=== PATIENT | female | born 1975 | race Caucasian/White ===

== ENCOUNTER 2019-02-26 13:42 | Emergency (ER) ==
[2019-02-26 13:46] VITALS: TEMP 98.5; BMI 38.1
[2019-02-26] MEDS ORDERED: TYLENOL PO STA (14:16)
[2019-02-26] MEDS ORDERED: DECADRON 4 MG/ML SDV IM STA (14:16)
[2019-02-26] MEDS ORDERED: BENADRYL PO STA (14:17)
--- NOTE | 2019-02-26 14:20 | ED.PDOC ---
General Chief Complaint: Eye Problem Stated Complaint: left upper eye lid edema Time Seen by Physician: 14:00 (seen with wolfe at all times ) Mode of Arrival: Walk-In Information Source: Patient Exam Limitations: No limitations Primary Care Provider: KD MIRANDA Nursing and Triage Documentation Reviewed and Agree: Yes Does patient meet sepsis criteria?: No If yes, has appropriate treatment been initiated?: No System Inflammatory Response Syndrome: Not Applicable Sepsis Protocol: For patient's 13 years and over: Temp is 96.8 and below OR 101 and greater Pulse >90 BPM Resp >20/minute Acutely Altered Mental Status Are patient's symptoms suggestive of a new infection, such as: -Pneumonia -Skin, Soft Tissue -Endocarditis -UTI -Bone, Joint Infection -Implantable Device -Acute Abdominal Infection -Wound Infection -Meningitis -Blood Stream Catheter Infection -Unknown EENT Complaint Exam - Eye Complaint/Exam Onset/Duration: today Symptoms Are: Still present Timing: Constant Initial Severity: Mild Current Severity: Mild (see photos) Location: Left Character: Reports: Dull Aggravating: Reports: None Alleviating: Reports: None Associated Signs and Symptoms: Denies: Photophobia, Clear drainage, Purulent drainage, Vision impairment, Fever (headache), Swelling Related History: Reports: Similar episode Eye Surgical History: Reports: None Penetrating Injury Risk Factors: None Globe Rupture Risk Factors: None Acute Glaucoma Risk Factors: None Optic Artery Occlusion Risk Factors: None Visual Acuity Right Eye: 20/20 Visual Acuity Left Eye: 20/50 Visual Field: Normal Extraocular Movement: Normal Orbit Findings: Normal Globe Findings: Intact Lid Findings: Normal Corneal Findings: Clear Fundi: Normal Slit Lamp Used: No Differential Diagnoses: Other (allergic reaction, ) Review of Systems - Review Of Systems Constitutional: Reports: No symptoms Eyes: Reports: Other (eye lid edema left) Ears, Nose, Mouth, Throat: Reports: No symptoms Respiratory: Reports: No symptoms Cardiac: Reports: No symptoms GI: Reports: No symptoms : Reports: No symptoms Musculoskeletal: Reports: No symptoms Skin: Reports: No symptoms Neurological: Reports: No symptoms Endocrine: Reports: No symptoms Hematologic/Lymphatic: Reports: No symptoms All Other Systems: Reviewed and Negative Past Medical History - Past Medical History Previously Healthy: Yes Endocrine: Reports: None Cardiovascular: Reports: None Respiratory: Reports: None Hematological: Reports: None Gastrointestinal: Reports: None Genitourinary: Reports: None Neuro/Psych: Reports: None Musculoskeletal: Reports: None Cancer: Reports: None Last Menstrual Period: tubal - Surgical History General Surgical History: Reports: None - Family History Family History: Reports: None - Social History Smoking Status: Current every day smoker Hx Substance Use: No Alcohol Screening: Occasionally - Immunizations Tetanus Shot up to Date: Yes Physical Exam - Physical Exam Appearance: Well-appearing, No pain distress, Well-nourished Eyes: CHEL (left upper lid edema see photos), EOMI, Conjunctiva clear ENT: Ears normal, Nose normal, Oropharynx normal Respiratory: Airway patent, Breath sounds clear, Breath sounds equal, Respirations nonlabored Cardiovascular: RRR, Pulses normal, No rub, No murmur GI/: Soft, Nontender, No masses, Bowel sounds normal, No Organomegaly Musculoskeletal: Normal strength, ROM intact, No edema, No calf tenderness Skin: Warm, Dry, Normal color Neurological: Sensation intact, Motor intact, Reflexes intact, Cranial nerves intact, Alert, Oriented Psychiatric: Affect appropriate, Mood appropriate Critical Care Note - Critical Care Note Total Time (mins): 0 Course - Course Orders, Labs, Meds: Orders Category Date Time Status Acetaminophen [Tylenol] MEDS 02/26/19 14:16 Stat 650 mg PO ONCE STA Dexamethasone 4 mg/ml Inj [Decadron 4 mg/ml Sdv] MEDS 02/26/19 14:16 Stat 8 mg IM ONCE STA Diphenhydramine HCl [Benadryl] MEDS 02/26/19 14:17 Stat 50 mg PO ONCE STA Medications Generic Name Dose Route Start Last Admin Trade Name Freq PRN Reason Stop Dose Admin Diphenhydramine HCl 50 mg 02/26/19 14:17 Benadryl PO 02/26/19 14:18 ONCE STA Discontinued Medications Generic Name Dose Route Start Last Admin Trade Name Freq PRN Reason Stop Dose Admin Acetaminophen 650 mg 02/26/19 14:16 Tylenol PO 02/26/19 14:17 ONCE STA Dexamethasone Sodium Phosphate 8 mg 02/26/19 14:16 Decadron 4 Mg/Ml Sdv IM 02/26/19 14:17 ONCE STA Vital Signs: Temp Pulse Resp BP Pulse Ox 02/26/19 13:42 98.5 F 89 16 145/93 H 98 Departure - Departure Time of Disposition: 14:20 Disposition: HOME SELF-CARE Discharge Problem: Allergic reaction Qualifiers: Encounter type: initial encounter Qualified Code(s): T78.40XA - Allergy, unspecified, initial encounter Hypertension Qualifiers: Hypertension type: unspecified Qualified Code(s): I10 - Essential (primary) hypertension Instructions: Allergies (ED), Hypertension (ED) Condition: Good Pt referred to PMD for follow-up: Yes IPMP verified?: No Additional Instructions: Please call your Family Physician as soon as possible to schedule a follow-up appointment.if the eyelid is not better or worse return in 24 hrs and follow up with the clinic, YOUR BLOOD PRESSURE IS HIGH PLEASE SEE THE CLINIC FOR THIS Prescriptions: Tobramycin [Tobrex] 2 drop OP QID #1 bottle Allergies/Adverse Reactions: Allergies No Known Allergies Allergy (Verified 02/26/19 13:47) Home Medications: Ambulatory Orders Tobramycin [Tobrex] 2 drop OP QID #1 bottle 02/26/19 Disposition Discussed With: Patient
[2019-02-26 14:48] VITALS: BP 124/72
== END 2019-02-26 14:49 | disposition home or self-care (01) ==
LOC: ED 13:42
DX: T78.40XA Allergy, unspecified, initial encounter (principal); I10 Essential (primary) hypertension; F17.210 Nicotine dependence, cigarettes, uncomplicated
CPT/HCPCS: 96372; 99282